=== PATIENT | male | born 1950 | race Caucasian/White ===

== ENCOUNTER 2017-01-21 22:33 | Emergency (ER) | payer MEDICARE ==
[~2017-01-21] VITALS: Ht 177.8 cm; Wt 86.3 kg
[~2017-01-21 22:33] MED LIST: ASPI-973 PO; CHOL100045 PO; INSU100V7 SUBQ; LOVA20TA PO; METF850T2 PO
[2017-01-21 22:35] VITALS: BP 119/81; PULSE 96; RESP 18; O2SAT 98
--- NOTE | 2017-01-21 23:16 | ED.REPORT ---
HPI-General Illness Date of Service Jan 21, 2017 ED Provider: Dexter Gonzalez MD Pt is a 66 year old male with a history of type I DM and CVA who presents to the ED complaining of dizziness onset 2 days ago. He c/o associated weakness, dryness, and chills. He denies headache and any other symptoms. Pt reports that his symptoms are similar to when he has previously had a stroke. The pt was fishing 2 days ago and he was not drinking water; when he left go to home, he started feeling dizzy and weakness. He reports that he last urinated at 17:00 and it was a dark yellow. Nursing Notes Stated Complaint: POSS HEAT STROKE Chief Complaint: Neuro Symptoms/ Deficits Nursing Notes Reviewed: Yes Allergies: Coded Allergies: No Known Allergies (Unverified , 01/21/17) Scheduled Aspirin (Aspirin) 81 Mg Tablet 81 MG PO DAILY Cholecalciferol (Vitamin D3) (Vitamin D) 1,000 Unit Capsule 1,000 UNIT PO DAILY PLEASE VERIFY DOSAGE Insulin Glargine (Lantus U100 Insulin Vial) 100 Unit/Ml Vial 24 UNIT SUBQ DAILY Lovastatin (Lovastatin) 20 Mg Tablet 20 MG PO HS Metformin (Metformin) 850 Mg Tablet 850 MG PO BID General Time Seen by MD: 23:16 Chief Complaint Dizziness Hx Obtained From: Patient Arrived By: Walk-in Sudden in Onset?: No Onset Occurred: 2 days ago Symptom Duration: Since onset Severity: Current: No pain currently Severity: Maximum: No pain Recent Healthcare: No recent doctor visit, No recent hospitalization Similar Sx Previous: Yes Past Medical History Past Medical History Notes: on ASA only Past Medical History Hepatitis (pt doesn't know what kind) Anxiety Reports: Asthma, Diabetes mellitus (Type I), Hyperlipidemia, Stroke Past Surgical History Reports: Cholecystectomy Smoking History Current Every Day Smoker Social History Alcohol Use: Denies alcohol use Drug Use: Meth Occupation lives in a trailor, was living in a van till last week. works in a side job as detailing cars Ambulatory Status Independent Review of Systems Full Review of Systems Constitutional: Reports: Chills, Weakness - generalized, Denies: Fever Musculoskeletal: Reports: Neck pain Neurologic: Reports: Dizziness, Denies: Headache Complete sys rev & neg: except as marked. Physical Exam Vital Signs Vital Signs Date Time Temp Pulse Resp B/P Pulse Ox O2 Delivery O2 Flow Rate FiO2 01/22/17 02:02 36.8 88 20 108/68 98 Room Air 01/21/17 22:35 37 96 18 119/81 98 Room Air Initial VS: Reviewed, Vital signs normal Head / Eyes: Atraumatic, Normocephalic Neck: Supple, Full range of motion Respiratory: Breath sounds normal, Clear to auscultation, No respiratory distress Cardiovascular: Regular rate & rhythm, Heart sounds normal, Intact distal pulses Abdomen / GI: Soft, Non-tender Extremities: Vascular intact, Neuro intact Skin: Warm, Dry, No cyanosis Neurologic: Alert, Oriented, Nonfocal Psychiatric: Mood/affect normal, Behavior normal General/Constitutional: Awake, Alert, Cooperative, Not toxic appearing Dry lips Interpretation & Diagnostics Lab Results Interpretation Result Diagram: 01/21/17 2340 01/21/17 2340 Test 01/21/17 23:40 White Blood Count 8.2th/mm3 (3.8-10.1) Red Blood Count 4.12mil/mm3 (4.40-5.80) Hemoglobin 14.4g/dL (13.8-17.2) Hematocrit 41.9% (41.0-50.0) Mean Corpuscular Volume 101.7fL (81-100) Mean Corpuscular Hemoglobin 35.0pg (27.0-35.0) Mean Corpuscular Hemoglobin Concent 34.4% (32.0-37.0) Red Cell Distribution Width 12.3% (12.3-15.4) Platelet Count 251bil/L (150-400) Neutrophils (%) (Auto) 61.3% (40-74) Lymphocytes (%) (Auto) 27.2% (14-46) Monocytes (%) (Auto) 9.1% (4-12) Eosinophils (%) (Auto) 1.8% (0-5) Basophils (%) (Auto) 0.5% (0-3) Hold Urine Received (Received) Sodium Level 137mEq/L (134-144) Potassium Level 4.1mEq/L (3.5-5.2) Chloride Level 100mEq/L (97-108) Carbon Dioxide Level 22mmol/L (18-29) Blood Urea Nitrogen 13mg/dL (8-27) Creatinine 1.18mg/dL (0.76-1.27) Estimat Glomerular Filtration Rate 66mL/min (>59) Glucose Level 181mg/dL (60-99) Calcium Level 8.7mg/dL (8.5-10.1) Magnesium Level 1.7mg/dL (1.6-2.6) Total Bilirubin 0.2mg/dL (0.0-1.2) Aspartate Amino Transf (AST/SGOT) 25U/L (0-50) Alanine Aminotransferase (ALT/SGPT) 18U/L (0-44) Alkaline Phosphatase 92U/L (25-160) Troponin T 0.010ug/L (0.0-0.011) Total Protein 6.5g/dL (6.4-8.4) Albumin 3.8g/dL (3.4-5.0) Hold Traylor Top Tube Received (Received) Lab Results Interpretation: Elevated nonfasting blood glucose CT Head Interpretation CONCLUSION: Normal CT of the head without contrast. Transmitted to the ED at 23:48 by Matti Saleem M.D. Study: Head CT no contrast Interpretation / Wet Read by: Interpret - Radiologist Re-Eval/Medical Decision Med Decision/Clinical Course Symptoms consistent with subacute heat stroke/heat exhaustion. He was hydrated. Labs revealed no specific abnormalities. CT scan of the head was done which was normal. Source of Hx: Old records Time of Eval: 01:18 Re-Evaluation/Progress Note: Pt rechecked. Informed pt of plan for discharge. Pt understands and agrees with plan for discharge. F/U instructions and RTER warnings given. All questions addressed. Counseled Regarding: Diagnosis, Lab results, Need for follow-up, When/why to return to ED Discharge & Departure Primary Impression: Heat stroke Encounter type: initial encounter Qualified Code: T67.0XXA - Heatstroke and sunstroke, initial encounter Disposition: Home Discharge Condition All VS Reviewed: Yes Condition: Stable Patient Instructions: Heatstroke (ED) Additional Instructions: Her labs are all normal with exception of elevated glucose at 181. Your head CT scan is normal. Continue hydration. If you are out in the sun, especially if you working or playing hard, be sure to keep up your fluid and electrolyte intake. Referrals: Serenity Vigil MD (PCP) Scribe Attestation Portions of this note were transcribed by Selene Suero. I, Dr. Gonzalez personally performed the history, physical exam and medical decision-making; I reviewed and confirmed the accuracy of the information in the transcribed note. Signed by: Francisco Wood, 01/22/17 and 00:50. copies to: Serenity Vigil MD Risk Factors NIH Stroke Scale Level of Consciousness: Alert and responsive (0) Ask Month & Age: Both questions right (0) Open/Close Eyes/Hand Director [employer]: Performs both tasks (0) Horizontal EO Movements: None (0) Visual Andres: No visual loss (0) Facial Palsy: Normal symmetry (0) Right Arm Motor Drift (10s): No drift 10 sec (0) Left Arm Motor Drift (10s): No drift 10 sec (0) Right Leg Motor Drift (5s): No drift 5 sec (0) Left Leg Motor Drift (5s): No drift 5 sec (0) Limb Ataxia FNF/Heel-Irvin: No ataxia (0) Sensation (Arms/Legs/Face): No sensory loss (0) Language Aphasia: No aphasia, normal (0) Dysarthria: No dysarthria, normal (0) Extinction/Inattention: No exctinct/inattent (0) NIHSS Score: 0 Time NIHSS Performed: 23:20 Date NIHSS Performed: Jan 22, 2017 Dexter Gonzalez MD Jan 21, 2017 23:16 Selene Ernst Jan 21, 2017 23:24
[2017-01-21] MEDS ORDERED: 0.9% Sodium Chloride 1,000 ML IV ONE (23:21)
[2017-01-21 23:57] LABS: BASOPHILS % (AUTO) 0.5 % (0-3); EOSINOPHILS % (AUTO) 1.8 % (0-5); MONOCYTES % (AUTO) 9.1 % (4-12); Mean Corpuscular Volume 101.7 fL (81-100); NEUTROPHILS % (AUTO) 61.3 % (40-74); Platelet Count 251 bil/L (150-400)
[2017-01-22] MEDS: Ondansetron 2 mg/mL 2 mL Inj IV PRN ×2 (00:04→00:07)
[2017-01-22 00:26] LABS: TROPONIN T 0.01 ug/L (0.0-0.011)
[2017-01-22 00:37] LABS: Magnesium 1.7 mg/dL (1.6-2.6)
[2017-01-22 02:02] VITALS: BP 108/68; PULSE 88; RESP 20; O2SAT 98
--- NOTE | 2017-01-22 11:18 | DRSVH ---
PROCEDURE: CT BRAIN WITHOUT CONTRAST ([id number]) INDICATIONS: weakness, vertigo TECHNIQUE: Noncontrast 4.5 mm thick angled axial sections acquired from the foramen magnum to the vertex, with c oronal reformats. COMPARISON: [facility], CT, BRAIN W/O CONTRAST, 09/10/2011, 18:29. [facility], MR, MR BRAIN WO CON, 04/07/2016, 9:51. [facility], CT, BRAIN W/O CONTRAST, 11/01/2014, 20:05. FINDINGS: Image quality: Excellent. CSF spaces: Basal cisterns are patent. No extra-axial fluid collections. The ventricles are symmet staci in size and shape. Brain: There are old infarct in the left cerebellar hemisphere. No intracranial bleeds or masses. T here is minimal cerebral volume loss with resultant ventricular and sulcal prominence. There are mil d periventricular and deep white matter chronic small vessel ischemic changes. There is intracranial internal carotid artery atherosclerosis. Skull and face: Calvarium and visualized facial bones appear intact, without suspicious lesions. Sinuses: Visualized sinuses and mastoids are clear. IMPRESSION: 1. No acute intracranial abnormalities. 2. Old right cerebellar infarct. Dictated by: Randell Beltran M.D. on 01/22/2017 at 7:56 Approved by: Randell Beltran M.D. on 01/22/2017 at 7:59
== END 2017-01-22 02:05 | disposition home or self-care (01) ==
LOC: SED 22:33
DX: T67.0XXA Heatstroke and sunstroke, initial encounter (principal); X30.XXXA Exposure to excessive natural heat, initial encounter; Y92.9 Unspecified place or not applicable; Y93.89 Activity, other specified; Y99.8 Other external cause status; E10.65 Type 1 diabetes mellitus with hyperglycemia; J45.909 Unspecified asthma, uncomplicated; E78.5 Hyperlipidemia, unspecified; F41.9 Anxiety disorder, unspecified; F17.200 Nicotine dependence, unspecified, uncomplicated; Z86.73 Personal history of transient ischemic attack (TIA), and cerebral infarction without residual deficits; Z79.82 Long term (current) use of aspirin; Z79.84 Long term (current) use of oral hypoglycemic drugs; Z79.4 Long term (current) use of insulin
CPT/HCPCS: 36415; 70450; 80053; 83735; 84484; 85025; 96360; 99285; J7030

== ENCOUNTER 2017-04-09 02:22 | Emergency (ER) | payer MEDICARE ==
[~2017-04-09] VITALS: Ht 180.3 cm; Wt 86.4 kg
[2017-04-09 02:25] VITALS: BP 131/77; PULSE 99; RESP 16; O2SAT 97
--- NOTE | 2017-04-09 02:29 | ED.REPORT ---
HPI-Extremity Problem Lower Date of Service Apr 09, 2017 ED Provider: Dexter Gonzalez MD Pt is a 66 year old male with a history of DM and stroke who presents to the ED complaining of sudden onset of left calf pain prior to arrival. Pt is concerned that he has a blood clot in his left leg. He c/o SOB secondary to pain. The pt reports that he drives frequently. He denies known injury to his left calf. The pt describes his left calf pain as "aching." He denies a history of blood clots , and he is unsure if he has a family history of blood clots. Nursing Notes Stated Complaint: L LEG PAIN, POSS BLOOD CLOT Chief Complaint: Extremity Trauma Nursing Notes Reviewed: Yes Allergies: Coded Allergies: No Known Allergies (Unverified , 01/21/17) Scheduled Aspirin (Aspirin) 81 Mg Tablet 81 MG PO DAILY Cholecalciferol (Vitamin D3) (Vitamin D) 1,000 Unit Capsule 1,000 UNIT PO DAILY PLEASE VERIFY DOSAGE Insulin Glargine (Lantus U100 Insulin Vial) 100 Unit/Ml Vial 24 UNIT SUBQ DAILY Lovastatin (Lovastatin) 20 Mg Tablet 20 MG PO HS Metformin (Metformin) 850 Mg Tablet 850 MG PO BID General Time Seen by MD: 02:28 Chief Complaint Other (Right leg pain) Hx Obtained From: Patient Arrived By: Walk-in Onset Occurred: Just prior to arrival Symptom Duration: Since onset Location: : Leg right Quality: Painful Severity: Current: Moderate Severity: Maximum: Moderate Recent Healthcare: No recent doctor visit, No recent hospitalization Similar Sx Previous: No Past Medical History Past Medical History Notes: on ASA only Past Medical History Hepatitis (pt doesn't know what kind) Anxiety Reports: Asthma, Diabetes mellitus, Hyperlipidemia, Stroke Past Surgical History Reports: Cholecystectomy Smoking History Current Every Day Smoker Social History Currently not working since 12/22/16 Alcohol Use: Denies alcohol use Drug Use: Meth Occupation lives in a trailor, was living in a van till last week. works in a side job as detailing cars Ambulatory Status Independent Review of Systems Constitutional: Denies: Fever Musculoskeletal: Reports: Extremity pain Complete sys rev & neg: except as marked. Respiratory: Reports: Shortness of breath, Denies: Non-productive cough Physical Exam Initial Vital Signs Vital Signs (First) Date Time Temp Pulse Resp B/P Pulse Ox O2 Delivery O2 Flow Rate FiO2 04/09/17 02:25 36.8 99 16 131/77 97 Initial VS: Reviewed, Vital signs normal Head / Eyes: Atraumatic, Normocephalic Neck: Supple, Full range of motion Respiratory: Breath sounds normal, Clear to auscultation, No respiratory distress Cardiovascular: Regular rate & rhythm, Heart sounds normal, Intact distal pulses Abdomen / GI: Soft, Non-tender Upper Extremities: Vascular intact, Neuro intact Skin: Warm, Dry, No cyanosis Neurologic: Alert, Oriented, Nonfocal Psychiatric: Mood/affect normal, Behavior normal Lower Extremity / Pelvis / MS: Neurologic intact, Vascular intact Varicosity bilaterally with left worse than right. Edema in left leg. Painful nodule in distal left calf. Ankle / Foot: Neurologic intact, Vascular intact General/Constitutional: Awake, Alert Interpretation & Diagnostics US DVT: Conclusion: No sonographic evidence of deep venous thrombosis. Transmitted to the ED at 04:33 by Cipriano Cr M.D. Lab Results Interpretation Test 04/09/17 03:00 D-Dimer 0.53mg/L FEU (<0.50) Hold Traylor Top Tube Received (Received) Re-Eval/Medical Decision Med Decision/Clinical Course 66-year-old male who has some left distal calf pain, and is concerned about a DVT. He has some varicosities without inflammation. There is slight edema of that leg compared to the right. His d-dimer was mildly elevated so a ultrasound was performed which showed no evidence of DVT. Support hose or recommended. Source of Hx: Old records Re-Evaluation/Progress #1: Time of Eval: 03:38 Re-Evaluation/Progress Note: Pt rechecked. Informed pt of elevated D-dimer and plan for US. Pt understands and agrees with plan for US. All questions addressed. Re-Evaluation/Progress #2: Time of Eval: 04:17 Re-Evaluation/Progress Note: Pt rechecked. Informed pt of US results. Pt rechecked. Informed pt of plan for discharge. Pt understands and agrees with plan for discharge. F/U instructions and RTER warnings given. All questions addressed. Counseled Regarding: Diagnosis, Lab results, Need for follow-up, When/why to return to ED Discharge & Departure Impression: Primary Impression: Pain of left calf Disposition: Home Discharge Condition All VS Reviewed: Yes Condition: Stable Patient Instructions: Varicose Veins (GEN) Additional Instructions: There is no evidence of blood clot on the ultrasound. Support hose may be helpful with your varicose veins and the swelling. Referrals: Serenity Vigil MD (PCP) Scribe Attestation Portions of this note were transcribed by Selene Suero. I, Dr. Gonzalez personally performed the history, physical exam and medical decision-making; I reviewed and confirmed the accuracy of the information in the transcribed note. Signed by: Francisco Wood, 04/09/17. copies to: Serenity Vigil MD, Howard L MD Apr 09, 2017 02:29 Selene Ernst Apr 09, 2017 02:42
[2017-04-09 04:54] VITALS: BP 109/70; PULSE 79; RESP 16; O2SAT 97
--- NOTE | 2017-04-09 08:37 | DRSVH ---
PROCEDURE: US VEINOUS LEG DUPLEX UNILATERAL, LEFT INDICATIONS: LEFT CALF PAIN AND LUMP, ELEV DIMER TECHNIQUE: Real-time imaging, as well as color and pulse Doppler interrogation, were performed of the lower extr emity deep veins from the inguinal ligament to the popliteal fossa. COMPARISON: None. FINDINGS: The deep veins are normally compressible, and free of intraluminal thrombus. Color and pu lse Doppler demonstrate normal phasic intraluminal flow. There is normal augmentation response to di stal compression maneuver. IMPRESSION: Negative for deep venous thrombosis. Note: Concordant preliminary findings given by the preschool associate teacher upon the completion of the examination to Dr. Gonzalez at 4:20 AM on April 09, 2017. Note: No significant discrepancy from the preliminary report. Dictated by: Srinivasa Durbin M.D. on 04/09/2017 at 8:34 Approved by: Srinivasa Durbin M.D. on 04/09/2017 at 8:36
== END 2017-04-09 04:45 | disposition home or self-care (01) ==
LOC: SED 02:22
DX: M79.605 Pain in left leg (principal); R06.02 Shortness of breath; J45.909 Unspecified asthma, uncomplicated; E78.5 Hyperlipidemia, unspecified; E11.9 Type 2 diabetes mellitus without complications; F41.9 Anxiety disorder, unspecified; F17.200 Nicotine dependence, unspecified, uncomplicated; Z86.73 Personal history of transient ischemic attack (TIA), and cerebral infarction without residual deficits; Z79.4 Long term (current) use of insulin; Z79.82 Long term (current) use of aspirin; Z79.84 Long term (current) use of oral hypoglycemic drugs